=== PATIENT | female | born 1960 | race Caucasian/White ===

== ENCOUNTER 2016-11-26 18:56 | Inpatient (IN) | payer OTHER ==
[2016-11-26 19:35] VITALS: BMI 30.1
--- NOTE | 2016-11-26 20:17 | HP ---
Admission ROS [facility] Chief Complaint: SEEKING REHAB SERVICES Allergies/Adverse Reactions: Allergies Allergy/AdvReac Type Severity Reaction Status Date / Time Penicillins Allergy Severe Verified 11/26/16 20:05 History of Present Illness: 56 Y.O. WOMAN WITH AN EXTENSIVE HISTORY OF CRACK-COCAINE DEPENDENCE IS HERE SEEKING REHAB SERVICES. HER LAST REHAB ADMISSION WAS 4 YEARS AGO AT A DIFFERENT FACILITY. LONGEST PERIOD CLEAN HAS BEEN 5 YEARS BUT REPORTS RELAPSING 4 MONTHS AGO. Exam Limitations: No Limitations - Ebola screening Have you traveled outside of the country in the last 21 days: No Have you had contact with anyone from an Ebola affected area: No Have you been sick,other than usual withdrawal symptoms: No Do you have a fever: No - Review of Systems Constitutional: Loss of Appetite, Changes in sleep EENT: reports: Tearing Respiratory: reports: Cough Cardiac: reports: No Symptoms Reported GI: reports: No Symptoms Reported : reports: No Symptoms Reported Musculoskeletal: reports: Joint Pain (RIGHT KNEE PAIN) Integumentary: reports: No Symptoms Reported Neuro: reports: No Symptoms reported Endocrine: reports: No Symptoms Reported Hematology: reports: No Symptoms Reported Psychiatric: reports: Judgement Intact, Mood/Affect Appropiate, Orientated x3 Other Systems: Reviewed and Negative Patient History - Patient Medical History Hx Anemia: No Hx Asthma: No Hx Chronic Obstructive Pulmonary Disease (COPD): No Hx Cancer: No Hx Congestive Heart Failure: No Hx Hypertension: No Hx Hypercholesterolemia: No Hx Pacemaker: No HX Cerebrovascular Accident: No Hx Seizures: No Hx Dementia: No Hx Diabetes: Yes (TYPE II ) Hx Gastrointestinal Disorders: No Hx Liver Disease: No Hx Genitourinary Disorders: No Hx Sexually Transmitted Disorders: Yes (SYPHILIS-TREATED 4 MONTHS GO ) Hx Renal Disease (ESRD): No Hx Thyroid Disease: No Hx Human Immunodeficiency Virus (HIV): No Hx Hepatitis C: No Hx Depression: No Hx Suicide Attempt: No Hx Bipolar Disorder: Yes Hx Schizophrenia: Yes - Patient Surgical History Past Surgical History: Yes Hx Orthopedic Surgery: Yes (RIGHT HAND FX REPAIR ) Hx Hysterectomy: Yes (AT AGE 42) Anesthesia Reaction: No - PPD History Documented Results: Positive w/o proof Results: NEEDS CXR PPD to be Administered?: No - Reproductive History Patient is a Female of Child Bearing Age (11 -55 yrs old): Yes LMP comment: AT AGE 42 Patient : No - Smoking Cessation Smoking history: Current every day smoker Have you smoked in the past 12 months: Yes Initiated information on smoking cessation: Yes 'Breaking Loose' booklet given: 11/26/16 - Substance & Tx. History Hx Alcohol Use: No Hx Substance Use: Yes Substance Use Type: Cocaine Hx Substance Use Treatment: Yes (REHAB: 4 YEARS AGO ) - Substances Abused Crack Route: Smoking Frequency: Daily Amount used: $150 Age of first use: 23 Date of Last Use: 11/25/16 Family Disease History - Family Disease History Family Disease History: Diabetes: Grandparent Admission Physical Exam [facility] - Vital Signs Vital Signs: Vital Signs - 24 hr 11/26/16 19:33 Temperature 97.7 F Pulse Rate 110 H Respiratory 16 Rate Blood Pressure 125/70 - Physical General Appearance: Yes: No Apparent Distress, Nourished, Appropriately Dressed HEENTM: Yes: Hearing grossly Normal, Normocephalic, Normal Voice Respiratory: Yes: Chest Non-Tender, Lungs Clear, Normal Breath Sounds, No Respiratory Distress, No Accessory Muscle Use Neck: Yes: No masses,lesions,Nodules, Trachea in good position Breast: Yes: Breast Exam Deferred Cardiology: Yes: Regular Rhythm, Tachycardia Abdominal: Yes: Non Tender, Flat, Soft Genitourinary: Yes: Other (NOM COMPLAINTS REPORTED) Back: Yes: Normal Inspection Musculoskeletal: Yes: full range of Motion, Gait Steady, Pelvis Stable Extremities: Yes: Normal Capillary Refill, Normal Inspection, Normal Range of Motion Neurological: Yes: Fully Oriented, Alert, Normal Mood/Affect, Normal Response Integumentary: Yes: Normal Color, Dry, Warm Lymphatic: Yes: Within Normal Limits - Diagnostic (1) Cocaine dependence, uncomplicated Current Visit: Yes Status: Chronic (2) Diabetes mellitus, type 2 Current Visit: Yes Status: Chronic (3) Nicotine dependence Current Visit: Yes Status: Chronic Cleared for Admission [facility] - Detox or Rehab [facility] Level of Care: Observation Bed Claeared for Rehab Admission: Yes [facility] Breath Alcohol Content Breath Alcohol Content: 0 Urine Pregancy Test - Result Urine Test Results: Negative- NO Line Present Urine Drug Screen - Results Drug Screen Negative: No Urine Drug Screen Results: RAI-Cocaine Inpatient Rehab Admission - Initial Determination Are CD services needed?: Yes Free of communicable disease: Yes Not in need of hospitalization: Yes - Rehab Admission Criteria Previous failed treatment: Yes Poor recovery environment: Yes Comorbidities: Yes Lacks judgement: No Patient is meeting Inpatient Rehab admission criteria:: Yes
[2016-11-26] MEDS ORDERED: LOPERAMIDE HCL 2 MG CAPSULE PO PRN (20:42)
[2016-11-26] MEDS ORDERED: IBUPROFEN 400 MG TABLET (FP) PO PRN (20:42)
[2016-11-26] MEDS ORDERED: MAGNESIUM CITRATE 300 ML BOTTLE PO PRN (20:42)
[2016-11-26] MEDS ORDERED: MENTHOL/PHENOL 1 EACH UD MM PRN (20:42)
[2016-11-26] MEDS ORDERED: P-EPHED 60MG/TRIPROLIDI 2.5MG TABLET PO PRN (20:42)
[2016-11-26] MEDS ORDERED: ACETAMINOPHEN 325 MG TABLET (FP) PO PRN (20:42)
[2016-11-26] MEDS ORDERED: MAGNESIUM HYDROX 2400MG/30ML ORAL SUSPENSION 30 ML CUP PO PRN (20:42)
[2016-11-26] MEDS ORDERED: diphenhydrAMINE HCL 50 MG CAPSULE PO PRN (20:42)
[2016-11-26] MEDS ORDERED: MAG HYDROX/AL HYDROX/SIMETH 30 ML UNIT-DOSE CUP PO PRN (20:42)
[2016-11-26] MEDS ORDERED: guaiFENesin/D-METHORPHAN HB 10 ML UNIT-DOSE CUPS PO PRN (20:42)
[2016-11-26 22:20] LABS: URINE APPEARANCE SLCLOUDY; URINE BILIRUBIN NEGATIVE (NEGATIVE); URINE BLOOD NEGATIVE (NEGATIVE); URINE COLOR YELLOW; URINE GLUCOSE (UA) NEGATIVE (NEGATIVE); URINE KETONE NEGATIVE (NEGATIVE); URINE NITRITE NEGATIVE (NEGATIVE); URINE PROTEIN NEGATIVE (NEGATIVE); URINE UROBILINOGEN NEGATIVE mg/dL (0.2-1.0)
[2016-11-26 22:50] LABS: URINE LEUK ESTERASE Negative (NEGATIVE)
[2016-11-26] MEDS: THIAMINE HCL 100 MG TABLET (FP) PO SCH (23:06)
[2016-11-27] MEDS: metFORMIN HCL 500 MG TABLET (FP) PO SCH ×2 (06:50→17:12)
[2016-11-27] MEDS: INSULIN SLIDING SCALE (NOVOLOG) 1 VIAL SQ SCH ×2 (07:34→17:13)
[2016-11-27] MEDS ORDERED: INSULIN (NOVOLOG) ASPART 100 UNITS/ML 10ML VIAL ONE (07:36)
--- NOTE | 2016-11-27 09:50 | EKG ---
Test Reason : Blood Pressure : / mmHG Vent. Rate : 073 BPM Atrial Rate : 073 BPM P-R Int : 132 ms QRS Dur : 080 ms QT Int : 400 ms P-R-T Axes : 023 086 068 degrees QTc Int : 440 ms NORMAL SINUS RHYTHM NORMAL ECG NO PREVIOUS ECGS AVAILABLE Confirmed by PATRICIA ANSARI MD ([id number]) on 11/27/2016 9:50:17 AM Referred By: Confirmed By:PATRICIA ANSARI MD
[2016-11-27 09:51] LABS: MCH 28.2 pg (25.7-33.7); MCHC 32.4 g/dl (32.0-36.0); MEAN PLT VOLUME 8.9 fl (7.5-11.1); PLATELET COUNT 197 K/MM3 (134-434); RDW 14.3 % (11.6-15.6); WHITE BLOOD COUNT 7.6 K/mm3 (4.0-10.0)
[2016-11-27] MEDS: NICOTINE 21 MG/24 HOURS TOPICAL PATCH TD SCH (09:51)
[2016-11-27] MEDS: PRENATAL VITAMINS W/ FOLIC ACID TABLET (FP) PO SCH (09:51)
[2016-11-27 09:53] LABS: ALBUMIN 3.2 g/dl (3.4-5.0); ALK PHOS 88 U/L (45-117); ANION GAP 7 (8-16); BILIRUBIN,TOTAL 0.2 mg/dL (0.2-1.0); CALCIUM 8.6 mg/dL (8.5-10.1); CO2 25 mmol/L (21-32); CREATININE 0.7 mg/dL (0.55-1.02); GLUCOSE,RANDOM 230 mg/dL (74-106); SGOT/AST 13 U/L (15-37); SGPT/ALT 22 U/L (12-78); TOT PROT 6.4 g/dl (6.4-8.2)
[2016-11-27 10:29] LABS: HIV 1 & 2 AB NEGATIVE; HIV 1 AGp24 NEGATIVE
--- NOTE | 2016-11-27 10:29 | HP ---
Psychiatrist Admission - Data Date of interview: 11/27/16 Admission source: [facility] Identifying data: This is the first admission to [address] [place] [address] for this 56 years old H female single,resides in [place] housing,on SSI. Medical History: Significant for DM,H/O Hysterectomy,Cholecystectomy. Psychiatric History: First contact with psychiatrist was at 19 years old when she was admitted to [facility] due to psychotic episode(auditory halluciantions,strange behavior).patient was dx with Schizophrenia.Patient was placed on Haldol.Patient reports 13-15 more psychiatric admissions.Most recent recent was [address] [facility] due to severe depression,hearing voices,drug use.patient sees psychiatrist at [facility] in the [place].Medications: Haldol 5 mg po bid. Physical/Sexual Abuse/Trauma History: denies Vital Signs: Vital Signs - 24 hr 11/26/16 11/26/16 11/27/16 19:33 22:24 00:38 Temperature 97.7 F 98.2 F Pulse Rate 110 H 71 Respiratory 16 20 18 Rate Blood Pressure 125/70 128/79 11/27/16 11/27/16 03:18 06:59 Temperature 98.2 F Pulse Rate 63 Respiratory 18 18 Rate Blood Pressure 139/82 Allergies/Adverse Reactions: Allergies Allergy/AdvReac Type Severity Reaction Status Date / Time Penicillins Allergy Severe Verified 11/26/16 20:05 Date of last physical exam: 11/26/16 Concur with the findings of this exam: Yes - Substance Abuse/Tx History Hx Alcohol Use: No (socially on/off) Hx Substance Use: Yes (crack/cocaine since 23 yo,longest 3 yeaRS OF SOBRIETY, RELAPSED 5 MONTHS AGO) Substance Use Type: Cocaine Hx Substance Use Treatment: Yes (completed assisted inpatient treatment 7 yo) Mental Status Exam - Mental Status Exam Alert and Oriented to: Time, Place, Person Cognitive Function: Grossly Intact Patient Appearance: Unkempt Mood: Sad Affect: Mood Congruent, Labile Patient Behavior: Cooperative Speech Pattern: Clear Voice Loudness: Normal Thought Process: Goal Oriented Thought Disorder: Being Controlled Hallucinations: Denies Suicidal Ideation: Denies Homicidal Ideation: Denies Insight/Judgement: Fair Sleep: Fair Appetite: Fair Muscle strength/Tone: Normal Gait/Station: Normal Psychiatric Findings - Problem List ([place] 1, 2,3) (1) Diabetes mellitus, type 2 Current Visit: Yes Status: Chronic (2) Nicotine dependence Current Visit: Yes Status: Chronic (3) Cocaine dependence Current Visit: Yes Status: Chronic (4) Schizophrenia Current Visit: Yes Status: Chronic - Initial Treatment Plan Initial Treatment Plan: Haldol 5 mg po bid.Will monitor progress.
[2016-11-27] MEDS ORDERED: PNEUMOCOCCAL 23 VACCINE 0.5 ML VIAL IM ONE (12:00)
[2016-11-27] MEDS ORDERED: FLU VACCINE QUAD 60 MCG/0.5 ML (MDV 17-18) IM ONE (12:00)
[2016-11-27] MEDS ORDERED: PNEUMOC 13-VAL CONJ-DIP CRM/PF 0.5 ML DISP.SYRIN IM ONE (12:00)
[2016-11-27] MEDS ORDERED: PT OWN MED DRAWER 7, Y5N ONE (13:41)
[2016-11-27] MEDS: THIAMINE HCL 100 MG TABLET (FP) PO SCH (21:12)
[2016-11-27] MEDS: HALOPERIDOL 5 MG TABLET (FP) PO SCH (21:12)
[2016-11-28] MEDS: metFORMIN HCL 500 MG TABLET (FP) PO SCH ×2 (06:39→16:31)
[2016-11-28] MEDS: INSULIN SLIDING SCALE (NOVOLOG) 1 VIAL SQ SCH ×2 (06:40→16:32)
[2016-11-28] MEDS ORDERED: INSULIN (NOVOLOG) ASPART 100 UNITS/ML 10ML VIAL ONE ×2 (06:58→16:31)
[2016-11-28] MEDS: NICOTINE POLACRILEX 2 MG GUM BUC PRN ×3 (08:56→15:05)
[2016-11-28] MEDS: HALOPERIDOL 5 MG TABLET (FP) PO SCH ×2 (09:32→21:14)
[2016-11-28] MEDS: PRENATAL VITAMINS W/ FOLIC ACID TABLET (FP) PO SCH (09:33)
[2016-11-28] MEDS: NICOTINE 21 MG/24 HOURS TOPICAL PATCH TD SCH (09:33)
[2016-11-28] MEDS: hydrOXYzine PAMOATE 50 MG CAPSULE (FP) PO PRN (15:04)
[2016-11-28] MEDS: THIAMINE HCL 100 MG TABLET (FP) PO SCH (21:14)
[2016-11-29] MEDS: metFORMIN HCL 500 MG TABLET (FP) PO SCH ×2 (07:01→17:03)
[2016-11-29] MEDS: INSULIN SLIDING SCALE (NOVOLOG) 1 VIAL SQ SCH ×2 (07:01→17:03)
[2016-11-29] MEDS ORDERED: INSULIN (NOVOLOG) ASPART 100 UNITS/ML 10ML VIAL ONE ×2 (07:06→16:51)
[2016-11-29] MEDS: HALOPERIDOL 5 MG TABLET (FP) PO SCH ×2 (09:11→21:06)
[2016-11-29] MEDS: hydrOXYzine PAMOATE 50 MG CAPSULE (FP) PO PRN ×2 (09:11→17:56)
[2016-11-29] MEDS: PRENATAL VITAMINS W/ FOLIC ACID TABLET (FP) PO SCH (09:11)
[2016-11-29] MEDS: NICOTINE POLACRILEX 2 MG GUM BUC PRN (09:12)
[2016-11-29] MEDS: NICOTINE 21 MG/24 HOURS TOPICAL PATCH TD SCH (09:12)
[2016-11-29] MEDS: THIAMINE HCL 100 MG TABLET (FP) PO SCH (21:06)
[2016-11-29] MEDS ORDERED: diphenhydrAMINE HCL 25 MG CAPSULE (FP) PO ONE (21:07)
[2016-11-30] MEDS: INSULIN SLIDING SCALE (NOVOLOG) 1 VIAL SQ SCH ×2 (06:26→16:52)
[2016-11-30] MEDS: metFORMIN HCL 500 MG TABLET (FP) PO SCH ×2 (06:26→16:52)
[2016-11-30] MEDS ORDERED: INSULIN (NOVOLOG) ASPART 100 UNITS/ML 10ML VIAL ONE (07:08)
[2016-11-30 07:19] VITALS: BP 153/84; PULSE 66; TEMP 98.1
[2016-11-30] MEDS: HALOPERIDOL 5 MG TABLET (FP) PO SCH (10:11)
[2016-11-30] MEDS: PRENATAL VITAMINS W/ FOLIC ACID TABLET (FP) PO SCH (10:11)
[2016-11-30] MEDS: NICOTINE 21 MG/24 HOURS TOPICAL PATCH TD SCH (10:11)
[2016-11-30] MEDS: hydrOXYzine PAMOATE 50 MG CAPSULE (FP) PO PRN (10:12)
--- NOTE | 2016-11-30 16:15 | PN ---
Psychiatric Progress Note Vital Signs: Vital Signs Period Temp Pulse Resp BP Sys/Curran Pulse Ox Last 24 Hr 98.1 F 66 16-18 153/84 Date of Session: 11/30/16 Chief Complaint:: Discharge visit HPI: Patient addressed Cocaine dependence comorbid with Schizophrenia. ROS: Significant for DM. Current Medications: Active Medications Generic Name Dose Route Start Last Admin Trade Name Freq PRN Reason Stop Dose Admin Acetaminophen 650 mg 11/26/16 20:42 11/27/16 21:13 Tylenol - PO 650 mg Q4H PRN Administration PAIN Al Hydroxide/Mg Hydroxide 30 ml 11/26/16 20:42 Mylanta Oral Suspension - PO Q6H PRN DYSPEPSIA Diphenhydramine HCl 50 mg 11/26/16 20:42 11/29/16 21:07 Benadryl - PO 50 mg HSMR1 PRN Administration INSOMNIA Eucalyptus/Menthol/Phenol/Sorbitol 1 each 11/26/16 20:42 Cepastat Lozenge - MM Q4H PRN SORE THROAT Guaifenesin 10 ml 11/26/16 20:42 Robitussin Dm - PO Q6H PRN COUGH Haloperidol 5 mg 11/27/16 22:00 11/30/16 10:11 Haldol - PO 5 mg BID GRACIELA Administration Hydroxyzine Pamoate 50 mg 11/26/16 20:42 11/30/16 10:12 Vistaril - PO 50 mg Q4H PRN Administration AGITATION Ibuprofen 400 mg 11/26/16 20:42 11/28/16 09:33 Motrin - PO 400 mg Q6H PRN Administration SEVERE PAIN Insulin Aspart 1 vial 11/27/16 07:00 11/30/16 06:26 Novolog Vial Sliding Scale - SQ 2 units BIDAC GRACIELA Administration Protocol Loperamide HCl 4 mg 11/26/16 20:42 Imodium - PO Q6H PRN DIARRHEA Magnesium Citrate 300 ml 11/26/16 20:42 Citroma - PO Q48H PRN CONSTIPATION Magnesium Hydroxide 30 ml 11/26/16 20:42 Milk Of Magnesia - PO DAILY PRN CONSTIPATION Metformin HCl 500 mg 11/27/16 07:00 11/30/16 06:26 Glucophage - PO 500 mg BID@0700,1630 GRACIELA Administration Nicotine 21 mg 11/27/16 10:00 11/30/16 10:11 Nicoderm Patch - TD 21 mg DAILY GRACIELA Administration Nicotine Polacrilex 2 mg 11/26/16 20:42 11/29/16 09:12 Nicorette Gum - BUC 2 mg Q2H PRN Administration NICOTINE REPLACEMENT RX Multivit/Folic Acid/Iron 1 tab 11/27/16 10:00 11/30/16 10:11 Vitamins ([facility]) - PO 1 tab DAILY GRACIELA Administration Pseudoephedrine/Triprolidine 1 combo 11/26/16 20:42 Actifed - PO TID PRN NASAL CONGESTION Thiamine HCl 100 mg 11/26/16 22:00 11/29/16 21:06 Vitamin B1 - PO 100 mg HS GRACIELA Administration Current Side Effect: No Lab tests ordered: No Lab tests reviewed: Yes Provider note:: Patient decided to sign out today AMA with no serios reasons for discharge.Patient didnt meet her treatment goals .She decided to continue to address her issues on outpatient basis despite our strong recommendations to continue her stabilization in inpatient rehabilitation.Patient reports finding that Haldol 5 mg po bid help to cope with psychosis.Scripts for 30 days provided. Supportive therapy privided focusing on coping skills,support utilization to maintain recovery. Total face to face time:: 35 Mental Status Exam - Mental Status Exam Alert and Oriented to: Time, Place, Person Cognitive Function: Grossly Intact Patient Appearance: Unkempt Mood: Euthymic Affect: Mood Congruent Patient Behavior: Resitive to Care Speech Pattern: Clear Voice Loudness: Normal Thought Process: Goal Oriented Thought Disorder: Being Controlled Hallucinations: Denies Suicidal Ideation: Denies Homicidal Ideation: Denies Insight/Judgement: Poor Sleep: Fair Appetite: Good Muscle strength/Tone: Normal Gait/Station: Normal Psychiatric Treatment Plan - Problem List (1) Diabetes mellitus, type 2 Current Visit: Yes (2) Nicotine dependence Current Visit: Yes (3) Cocaine dependence Current Visit: Yes (4) Schizophrenia Current Visit: Yes
== END 2016-11-30 17:03 | disposition left against medical advice (07) | DRG 770 ==
LOC: YASAS 18:56 → Y3E 20:07
PROVIDERS: ADMIT Psychiatry & Neurology Psychiatry; ATTEND Psychiatry & Neurology Psychiatry
PROC: HZ42ZZZ Group Counseling for Substance Abuse Treatment, Cognitive-Behavioral (ICD-10-PCS; principal; 2016-11-26)
DX: F14.20 Cocaine dependence, uncomplicated (principal); F17.210 Nicotine dependence, cigarettes, uncomplicated; F20.9 Schizophrenia, unspecified; R00.0 Tachycardia, unspecified; E11.9 Type 2 diabetes mellitus without complications; Z87.42 Personal history of other diseases of the female genital tract
CPT/HCPCS: 36415; 71020-TC; 80053; 81003; 85027; 86593; 86803; 87389; 90688; 90732; 93005; 93010; G0008; G0009

== ENCOUNTER 2017-11-25 21:03 | Inpatient (IN) | payer OTHER ==
[2017-11-25 21:50] VITALS: BMI 28.0
[2017-11-25] MEDS ORDERED: MELATONIN 5 MG TABLETS PO PRN (22:00)
--- NOTE | 2017-11-25 23:12 | HP ---
Admission ROS [facility] Chief Complaint: Seeking admission to Rehab Allergies/Adverse Reactions: Allergies Allergy/AdvReac Type Severity Reaction Status Date / Time Penicillins Allergy Severe Verified 11/26/16 20:05 History of Present Illness: 57 years old female with a long history of cocaine dependence is seeking admission to [facility]. Patient has been in previous Rehabilitation and Diabetes Type 2, depression and anxiety. He denies suicide attempt and suicdal ideation at this time. Exam Limitations: No Limitations - Ebola screening Have you traveled outside of the country in the last 21 days: No (N) Have you had contact with anyone from an Ebola affected area: No Have you been sick,other than usual withdrawal symptoms: No Do you have a fever: No - Review of Systems Constitutional: No Symptoms Reported EENT: reports: No Symptoms Reported Respiratory: reports: No Symptoms reported Cardiac: reports: No Symptoms Reported GI: reports: No Symptoms Reported : reports: No Symptoms Reported Musculoskeletal: reports: No Symptoms Reported Integumentary: reports: No Symptoms Reported Neuro: reports: No Symptoms reported Endocrine: reports: No Symptoms Reported Hematology: reports: No Symptoms Reported Psychiatric: reports: No Sypmtoms Reported Other Systems: Reviewed and Negative Patient History - Patient Medical History Hx Anemia: No Hx Asthma: No Hx Chronic Obstructive Pulmonary Disease (COPD): No Hx Cancer: No Hx Cardiac Disorders: No Hx Congestive Heart Failure: No Hx Hypertension: No Hx Hypercholesterolemia: No Hx Pacemaker: No HX Cerebrovascular Accident: No Hx Seizures: No Hx Dementia: No Hx Diabetes: Yes (Metformin and Insulin) Hx Gastrointestinal Disorders: No Hx Liver Disease: No Hx Genitourinary Disorders: No Hx Sexually Transmitted Disorders: No Hx Renal Disease (ESRD): No Hx Thyroid Disease: No Hx Human Immunodeficiency Virus (HIV): No (Negative 2018) Hx Hepatitis C: No Hx Depression: Yes (Not on medication) Hx Suicide Attempt: No (Denies suicide attempt and suicidal ideation at this time) Hx Bipolar Disorder: Yes Hx Schizophrenia: Yes Other Medical History: Anxiety - Not on medication - Patient Surgical History Past Surgical History: Yes Hx Cholecystectomy: Yes Hx Orthopedic Surgery: Yes (RIGHT HAND FX REPAIR ) Hx Hysterectomy: Yes (AT AGE 42) Anesthesia Reaction: No - PPD History Previous Implant?: Yes (PPD POSITVE. INHfor 6 months) Documented Results: Positive w/proof Implanted On Prior [facility] Admission?: No Results: NEEDS CXR PPD to be Administered?: No - Reproductive History Patient is a Female of Child Bearing Age (11 -55 yrs old): No (Male) - Smoking Cessation Smoking history: Current every day smoker Have you smoked in the past 12 months: Yes Aproximately how many cigarettes per day: 20 Hx Chewing Tobacco Use: No Initiated information on smoking cessation: Yes 'Breaking Loose' booklet given: 11/25/17 - Substance & Tx. History Hx Alcohol Use: No Hx Substance Use: Yes Substance Use Type: Cocaine Hx Substance Use Treatment: Yes ([facility]) Family Disease History - Family Disease History Family Disease History: Diabetes: Grandparent Admission Physical Exam [facility] - Vital Signs Vital Signs: Vital Signs - 24 hr 11/25/17 21:46 Temperature 98.0 F Pulse Rate 67 Respiratory 18 Rate Blood Pressure 152/72 - Physical General Appearance: Yes: Within Normal Limits, Appropriately Dressed HEENTM: Yes: Within Normal Limits, EOMI, Normal ENT Inspection, Normocephalic, Normal Voice Respiratory: Yes: Within Normal Limits Neck: Yes: Within Normal Limits Breast: Yes: Breast Exam Deferred Cardiology: Yes: Within Normal Limits Abdominal: Yes: Within Normal Limits Genitourinary: Yes: Within Normal Limits Back: Yes: Within Normal Limits Musculoskeletal: Yes: Within Normal Limits Extremities: Yes: Within Normal Limits Neurological: Yes: Within Normal Limits, gasoline tester II-XII NML intact, Alert, Normal Mood/Affect Integumentary: Yes: Within Normal Limits Lymphatic: Yes: Within Normal Limits - Diagnostic (1) Depression Current Visit: Yes Status: Chronic Qualifiers: Depression Type: unspecified Qualified Code(s): F32.9 - Major depressive disorder, single episode, unspecified (2) Anxiety Current Visit: Yes Status: Chronic (3) Cocaine dependence, uncomplicated Current Visit: Yes Status: Chronic (4) Diabetes mellitus, type 2 Current Visit: Yes Status: Chronic (5) Nicotine dependence Current Visit: Yes Status: Chronic Qualifiers: Nicotine product type: cigarettes Cleared for Admission [facility] - Detox or Rehab [facility] Level of Care: Observation Bed Claeared for Rehab Admission: Yes [facility] Breath Alcohol Content Breath Alcohol Content: 0 Urine Pregancy Test - Result Urine Test Results: Negative- NO Line Present Urine Drug Screen - Results Drug Screen Negative: No Urine Drug Screen Results: RAI-Cocaine Inpatient Rehab Admission - Initial Determination Are CD services needed?: Yes Free of communicable disease: Yes Not in need of hospitalization: Yes - Rehab Admission Criteria Previous failed treatment: Yes Poor recovery environment: Yes Comorbidities: Yes Lacks judgement: No Patient is meeting Inpatient Rehab admission criteria:: Yes
[2017-11-25] MEDS ORDERED: MAG HYDROX/AL HYDROX/SIMETH 30 ML UNIT-DOSE CUP PO PRN (23:21)
[2017-11-25] MEDS ORDERED: ACETAMINOPHEN 325 MG TABLET (FP) PO PRN (23:21)
[2017-11-25] MEDS ORDERED: MAGNESIUM CITRATE 300 ML BOTTLE PO PRN (23:21)
[2017-11-25] MEDS ORDERED: MAGNESIUM HYDROX 2400MG/30ML ORAL SUSPENSION 30 ML CUP PO PRN (23:21)
[2017-11-25] MEDS ORDERED: LOPERAMIDE HCL 2 MG CAPSULE PO PRN (23:21)
[2017-11-25] MEDS ORDERED: P-EPHED 60MG/TRIPROLIDI 2.5MG TABLET PO PRN (23:21)
[2017-11-25] MEDS ORDERED: guaiFENesin/D-METHORPHAN HB 10 ML UNIT-DOSE CUPS PO PRN (23:21)
[2017-11-25] MEDS ORDERED: IBUPROFEN 400 MG TABLET (FP) PO PRN (23:21)
[2017-11-25] MEDS ORDERED: MENTHOL/PHENOL 1 EACH UD MM PRN (23:21)
[2017-11-26] MEDS ORDERED: metFORMIN HCL 500 MG TABLET (FP) PO SCH (07:00)
[2017-11-26 07:02] VITALS: TEMP 97.8
[2017-11-26 09:24] VITALS: BP 164/84; PULSE 69
--- NOTE | 2017-11-26 09:36 | EKG ---
Test Reason : Blood Pressure : / mmHG Vent. Rate : 073 BPM Atrial Rate : 073 BPM P-R Int : 126 ms QRS Dur : 076 ms QT Int : 394 ms P-R-T Axes : 037 -24 003 degrees QTc Int : 434 ms NORMAL SINUS RHYTHM NONSPECIFIC ST ABNORMALITY Confirmed by PATRICIA ANSARI MD ([id number]) on 11/26/2017 9:36:02 AM Referred By: Confirmed By:PATRICIA ANSARI MD
[2017-11-26] MEDS ORDERED: PRENATAL VITAMINS W/ FOLIC ACID TABLET (FP) PO SCH (10:00)
[2017-11-26] MEDS ORDERED: NICOTINE 14 MG/24 HOURS TOPICAL PATCH TD SCH (10:00)
[2017-11-26] MEDS ORDERED: HALOPERIDOL 5 MG TABLET (FP) PO SCH (10:45)
--- NOTE | 2017-11-26 10:45 | PN ---
[facility] Progress Note Note: Called by nursing staff to order medication for patient. Haldol 5 mg po BID ordered
[2017-11-26 11:00] LABS: URINE APPEARANCE CLEAR; URINE BILIRUBIN NEGATIVE (<2.0 mg/dL); URINE COLOR LTYELLOW; URINE GLUCOSE (UA) NEGATIVE (NEGATIVE); URINE KETONE NEGATIVE (NEGATIVE); URINE LEUK ESTERASE NEGATIVE (NEGATIVE); URINE NITRITE NEGATIVE (NEGATIVE); URINE PROTEIN NEGATIVE (NEGATIVE); URINE UROBILINOGEN NEGATIVE mg/dL (0.2-1.0)
[2017-11-26] MEDS ORDERED: INSULIN SLIDING SCALE (NOVOLOG) 1 VIAL SQ SCH ×2 (11:00)
[2017-11-26 11:03] LABS: HEMOGLOBIN 12.6 GM/dL (10.7-15.3); MCH 27.9 pg (25.7-33.7); MCHC 31.6 g/dl (32.0-36.0); MEAN CELL VOLUME 88.2 fl (80-96); MEAN PLT VOLUME 8.8 fl (7.5-11.1); PLATELET COUNT 237 K/MM3 (134-434); RBC 4.54 M/mm3 (3.60-5.2); RDW 14.7 % (11.6-15.6); WHITE BLOOD COUNT 7.2 K/mm3 (4.0-10.0)
[2017-11-26 11:34] LABS: ALBUMIN 3.6 g/dl (3.4-5.0); ALK PHOS 81 U/L (45-117); ANION GAP 6 MMOL/L (8-16); BILIRUBIN,TOTAL 0.1 mg/dL (0.2-1); BLOOD UREA NITROGEN 10 mg/dL (7-18); CALCIUM 9.6 mg/dL (8.5-10.1); CHLORIDE 109 mmol/L (98-107); CO2 27 mmol/L (21-32); CREATININE 0.5 mg/dL (0.55-1.3); GLUCOSE,RANDOM 115 mg/dL (74-106); POTASSIUM 4.3 mmol/L (3.5-5.1); SGOT/AST 15 U/L (15-37); SGPT/ALT 18 U/L (13-61); SODIUM 142 mmol/L (136-145); TOT PROT 7.2 g/dl (6.4-8.2)
[2017-11-26] MEDS ORDERED: FLU VACCINE QUAD 60 MCG/0.5 ML (MDV 18-19) IM ONE (12:00)
[2017-11-26] MEDS ORDERED: THIAMINE HCL 100 MG TABLET (FP) PO SCH (22:00)
== END 2017-11-26 11:18 | disposition left against medical advice (07) | DRG 770 ==
LOC: YASAS 21:03 → Y3E 23:27
PROVIDERS: ADMIT Psychiatry & Neurology Psychiatry; ATTEND Psychiatry & Neurology Psychiatry
PROC: HZ42ZZZ Group Counseling for Substance Abuse Treatment, Cognitive-Behavioral (ICD-10-PCS; principal; 2017-11-25)
DX: F14.20 Cocaine dependence, uncomplicated (principal); F17.210 Nicotine dependence, cigarettes, uncomplicated; F32.9 Major depressive disorder, single episode, unspecified; F41.9 Anxiety disorder, unspecified; E11.9 Type 2 diabetes mellitus without complications; Z88.0 Allergy status to penicillin; Z79.4 Long term (current) use of insulin; Z79.84 Long term (current) use of oral hypoglycemic drugs
CPT/HCPCS: 36415; 80053; 81003; 82962; 85027; 86593; 93005; 93010